=== PATIENT | female | born 1990 | race Two or more races ===

== ENCOUNTER 2022-06-07 05:29 | Day surgery (SDC) | payer OTHER ==
[~2022-06-07] VITALS: Ht 162.6 cm; Wt 64.4 kg
== END 2022-06-07 12:35 | disposition home or self-care (01) ==
LOC: CIR.AMB 05:29
PROVIDERS: ATTEND Obstetrics & Gynecology
DX: N70.91 Salpingitis, unspecified (principal); N93.9 Abnormal uterine and vaginal bleeding, unspecified; Z86.16 Personal history of COVID-19

== ENCOUNTER 2024-09-29 21:35 | Emergency (ER) | payer OTHER ==
[~2024-09-29] VITALS: Ht 162.6 cm; Wt 63.0 kg
[2024-09-29 23:58] LABS: PH,URINE 5.5 (5.0-8.0); URINE APPEARANCE Clear; URINE BILIRRUBIN Negative (NEGATIVE); URINE BLOOD Negative; URINE COLOR Yellow; URINE GLUCOSE Negative (NEGATIVE); URINE KETONE Trace (NEGATIVE); URINE LEUKOCYTE Negative; URINE NITRATE Negative; URINE PROTEIN Negative (NEGATIVE); URINE UROBILINOGEN 0.2 E.U./dl
[2024-09-29 23:59] LABS: HEMATOCRIT 36.4 % (36.0-45.00); HEMOGLOBIN 12.4 g/dL (12.0-15.00); MEAN CELL VOLUME 82.1 fL (80.00-100.00); MEAN CORPUSCULAR HEMOGLOBIN 27.9 pg (27.00-32.0); PLATELET COUNT 420 K/uL (150-450); RED BLOOD COUNT 4.44 M/uL (4.00-6.00); RED CELL DISTRIBUTION WIDTH 13.8 % (11.5-14.5)
[2024-09-30 00:02] LABS: URINE EPITHELIAL CELLS 24.7 uL (0.0-38.8); URINE RBC 9.7 uL (0.0-20.8); URINE WBC 7.5 uL (0.0-23.2)
[2024-09-30 00:22] LABS: URINE CAST 0.15 uL (0.0-1.40)
[2024-09-30 00:34] LABS: BILIRUBIN TOTAL 0.22 mg/dL (0.3-1.2); CALCIUM 9.2 mg/dL (8.5-10.1); CREATININE SERUM 0.9 mg/dL (0.55-1.02); GFR 71.25; GLOBULINA 4.1 G/DL (2.4-3.5); POTASSIUM 3.61 mEq/L (3.5-5.1); TOTAL PROTEIN 8.1 gm/dL (6.4-8.2)
[2024-09-30] MEDS ORDERED: HYOSCYAMINE SULFATE 0.125 MG TAB.SUBL SL ONE (03:45)
== END 2024-09-30 03:44 | disposition home or self-care (01) ==
LOC: ER 21:36
PROVIDERS: Emergency Medicine
DX: K58.9 Irritable bowel syndrome, unspecified (principal); R10.9 Unspecified abdominal pain
CPT/HCPCS: 36415; 74177; Q9965